=== PATIENT | female | born 1985 | race Asian ===

== ENCOUNTER 2020-07-04 20:34 | Emergency (ER) | payer OTHER ==
[2020-07-04 22:41] LABS: HEMOGLOBIN 11.6 gm/dl (12.3-15.3); RED BLOOD COUNT 3.67 M/UL (4.00-5.10); WHITE BLOOD COUNT 14.6 K/UL (4.5-11.0)
[2020-07-04 22:55] LABS: BUN/CREATININE RATIO 24 (0-10)
[2020-11-15] MEDS ORDERED: HYDROCODON-ACE1 EAC4 PO (08:53)
[2020-11-15] MEDS ORDERED: IBU600 MG PO (08:53)
== END 2020-07-05 02:15 | disposition home or self-care (01) ==
LOC: ER1 20:34
PROVIDERS: Physician Assistant
DX: O20.0 Threatened abortion (principal); O34.11 Maternal care for benign tumor of corpus uteri, first trimester; Z3A.08 8 weeks gestation of pregnancy
CPT/HCPCS: 76801; 80048; 84702; 85025; 86900; 86901; 96374; 96375; 96376; 99284; J2270; J2405; J2550; J7030

== ENCOUNTER 2020-08-03 08:20 | Emergency (ER) | payer OTHER ==
[2020-11-15] MEDS ORDERED: HYDROCODON-ACE1 EAC4 PO (08:53)
[2020-11-15] MEDS ORDERED: IBU600 MG PO (08:53)
== END 2020-08-03 09:18 | disposition home or self-care (01) ==
LOC: ER1 08:20
DX: O20.0 Threatened abortion (principal); Z3A.14 14 weeks gestation of pregnancy
CPT/HCPCS: 99283

== ENCOUNTER 2020-08-27 03:44 | Inpatient (IN) | payer OTHER ==
[2020-08-27 10:22] LABS: HEMOGLOBIN 11.3 gm/dl (12.3-15.3); RED BLOOD COUNT 3.55 M/UL (4.00-5.10); WHITE BLOOD COUNT 13.4 K/UL (4.5-11.0)
[2020-08-27] MEDS ORDERED: TYLENOL EXTRA500 MG PO (15:28)
[2020-08-27] MEDS ORDERED: IBUPROFEN800 MG PO (15:28)
[2020-08-27] MEDS ORDERED: DOCUSATE SODIU100 MG PO (15:28)
[2020-08-27] MEDS ORDERED: VISTARIL 50 MG50 MG PO (15:55)
[2020-11-15] MEDS ORDERED: HYDROCODON-ACE1 EAC4 PO (08:53)
[2020-11-15] MEDS ORDERED: IBU600 MG PO (08:53)
== END 2020-08-27 17:13 | disposition home or self-care (01) | DRG 779 ==
LOC: ER1 03:44 → CDU 04:19
PROVIDERS: Obstetrics & Gynecology; ADMIT Obstetrics & Gynecology
PROC: 10E0XZZ Delivery of Products of Conception, External Approach (ICD-10-PCS; principal; 2020-08-27)
DX: O02.1 Missed abortion (principal); Z3A.15 15 weeks gestation of pregnancy; D25.9 Leiomyoma of uterus, unspecified
CPT/HCPCS: 85025; 86850; 86900; 86901; 99285; G0378; J0595; J2590; U0002

== ENCOUNTER → 2020-11-15 | Day surgery (SDC) | payer OTHER ==
[~2020-11-15] VITALS: Ht 152.4 cm; Wt 64.9 kg
[~2020-11-15] MED LIST: DOCUSATE SODIU100 MG PO; HYDROCODON-ACE1 EAC4 PO; IBU600 MG PO; IBUPROFEN800 MG PO; TYLENOL EXTRA500 MG PO; VISTARIL 50 MG50 MG PO
[2020-11-15 07:05] LABS: HEMOGLOBIN 12.3 gm/dl (12.3-15.3); RED BLOOD COUNT 4.1 M/UL (4.00-5.10); WHITE BLOOD COUNT 6.2 K/UL (4.5-11.0)
== END | disposition home or self-care (01) ==
LOC: OR 06:18
PROVIDERS: Obstetrics & Gynecology
DX: O02.1 Missed abortion (principal); Z79.899 Other long term (current) drug therapy
CPT/HCPCS: 36415; 81001; 84702; 85025; J1100; J2001; J2250; J2405; J2704; J2795; J3010; J7030; J7120

== ENCOUNTER 2021-09-08 05:10 | Inpatient (IN) | payer OTHER ==
[~2021-09-08] VITALS: Ht 149.9 cm; Wt 87.5 kg
[2021-09-08 06:55] LABS: HEMOGLOBIN 11.8 gm/dl (12.3-15.3); RED BLOOD COUNT 3.78 M/UL (4.00-5.10)
[2021-09-08] MEDS ORDERED: FERROUS SULFAT325 MG PO (15:54)
[2021-09-08] MEDS ORDERED: COLACE100 MG PO (15:54)
[2021-09-08] MEDS ORDERED: IBUPROFEN600 MG PO (15:54)
[2021-09-09 04:09] LABS: HEMOGLOBIN 11.1 gm/dl (12.3-15.3)
[2021-09-09] MEDS ORDERED: HYDROCODON-ACE1 EAC4 PO (14:11)
== END 2021-09-09 18:25 | disposition home or self-care (01) | DRG 807 ==
LOC: OB 05:10
PROVIDERS: Obstetrics & Gynecology; ADMIT Obstetrics & Gynecology
PROC: 10E0XZZ Delivery of Products of Conception, External Approach (ICD-10-PCS; principal; 2021-09-08)
PROC: 0KQM0ZZ Repair Perineum Muscle, Open Approach (ICD-10-PCS; 2021-09-08)
PROC: 10907ZC Drainage of Amniotic Fluid, Therapeutic from Products of Conception, Via Natural or Artificial Opening (ICD-10-PCS; 2021-09-08)
PROC: 3E033VJ Introduction of Other Hormone into Peripheral Vein, Percutaneous Approach (ICD-10-PCS; 2021-09-08)
PROC: 4A1H7CZ Monitoring of Products of Conception, Cardiac Rate, Via Natural or Artificial Opening (ICD-10-PCS; 2021-09-08)
PROC: 10H073Z Insertion of Monitoring Electrode into Products of Conception, Via Natural or Artificial Opening (ICD-10-PCS; 2021-09-08)
PROC: 10H07YZ Insertion of Other Device into Products of Conception, Via Natural or Artificial Opening (ICD-10-PCS; 2021-09-08)
PROC: 3E0234Z Introduction of Serum, Toxoid and Vaccine into Muscle, Percutaneous Approach (ICD-10-PCS; 2021-09-08)
DX: O99.344 Other mental disorders complicating childbirth (principal); Z37.0 Single live birth; F53.0 Postpartum depression; O70.1 Second degree perineal laceration during delivery; Z20.822 Contact with and (suspected) exposure to COVID-19; Z3A.39 39 weeks gestation of pregnancy; Z83.3 Family history of diabetes mellitus; Z23 Encounter for immunization
CPT/HCPCS: 81001; 85014; 85018; 85025; 90715; J2590; U0002